=== PATIENT | female | born 1975 | race Two or more races ===

== ENCOUNTER 2021-01-12 12:30 | Inpatient (IN) | payer OTHER ==
[~2021-01-12] VITALS: Ht 160 cm; Wt 98.0 kg
[2021-01-12] MEDS ORDERED: SYNTHROID50 MCG PO (16:46)
== END 2021-01-16 12:32 | disposition home or self-care (01) | DRG 743 ==
LOC: O/R 01-13 05:00 → SURG-SUITE 01-13 05:00 → OB/GYN 01-13 12:30 → SURG-SUITE 01-13 18:12
PROVIDERS: ADMIT Specialist; ATTEND Specialist
PROC: 0UB70ZZ Excision of Bilateral Fallopian Tubes, Open Approach (ICD-10-PCS; 2021-01-13)
PROC: 0TN70ZZ Release Left Ureter, Open Approach (ICD-10-PCS; 2021-01-13)
PROC: 0TN60ZZ Release Right Ureter, Open Approach (ICD-10-PCS; 2021-01-13)
PROC: 0DNW0ZZ Release Peritoneum, Open Approach (ICD-10-PCS; 2021-01-13)
PROC: 0UT90ZL Resection of Uterus, Supracervical, Open Approach (ICD-10-PCS; principal; 2021-01-13 14:30)
DX: D25.1 Intramural leiomyoma of uterus (principal); D26.1 Other benign neoplasm of corpus uteri; N99.4 Postprocedural pelvic peritoneal adhesions; N83.8 Other noninflammatory disorders of ovary, fallopian tube and broad ligament; N73.6 Female pelvic peritoneal adhesions (postinfective); E03.8 Other specified hypothyroidism; R19.00 Intra-abdominal and pelvic swelling, mass and lump, unspecified site